=== PATIENT | male | born 1945 | race Caucasian/White ===

== ENCOUNTER 2019-03-12 06:08 | Emergency (ER) | payer MEDICARE, OTHER ==
[2019-03-12 06:49] VITALS: TEMP 98.4
[2019-03-12 06:59] LABS: LACTIC ACID 0.9 mMol/L (0.0-2.0)
[2019-03-12 07:11] LABS: BASOPHILS % (AUTO) 1 % (0-3); CALCIUM 7.8 mg/dl (8.5-10.1); CARBON DIOXIDE 26.4 mEq/L (21-32); CREATININE 1.09 mg/dl (0.80-1.30); EOSINOPHILS % (AUTO) 1 % (0-9); HEMATOCRIT 29 % (39-53); HEMOGLOBIN 9.3 gm/dl (13.5-17.7); LYMPHOCYTES % (AUTO) 10.2 % (10-50); MEAN CORPUSCULAR HEMOGLOBIN 29.3 pg (27.0-32.0); MEAN CORPUSCULAR HGB CONC 32.4 gm/dl (32.0-36.0); MEAN CORPUSCULAR VOLUME 91 fL (80-100); NEUTROPHILS % (AUTO) 77.8 % (37-80); POTASSIUM 3.8 mMol/L (3.5-5.1)
[2019-03-12 07:34] LABS: INR 1.12 (0.86-1.12)
[2019-03-12 08:58] VITALS: BP 122/64; PULSE 75; RESP 20; O2SAT 98
== END 2019-03-12 08:46 | disposition home or self-care (01) | DRG 392 ==
LOC: ED 06:08
DX: K59.00 Constipation, unspecified (principal); Z79.01 Long term (current) use of anticoagulants
CPT/HCPCS: 36415; 80048; 85025; 85610; 99282; 99283